=== PATIENT | male | born 1970 | race Caucasian/White ===

== ENCOUNTER → 2018-03-01 | Outpatient (CLI) | payer BC | END | disposition home or self-care (01) | LOC: XY 12:19 | DX: I65.29 Occlusion and stenosis of unspecified carotid artery (principal); R55 Syncope and collapse; R42 Dizziness and giddiness | CPT/HCPCS: 93886 ==

== ENCOUNTER → 2018-04-25 | Outpatient (CLI) | payer BC ==
[~2018-04-25] VITALS: Ht 182.9 cm; Wt 90.7 kg
== END | disposition home or self-care (01) ==
LOC: Rad HDHVI 14:12
PROVIDERS: ATTEND Internal Medicine Cardiovascular Disease
DX: I45.10 Unspecified right bundle-branch block (principal); I49.9 Cardiac arrhythmia, unspecified
CPT/HCPCS: 78452; 93017; 93306; 96374; A9500

== ENCOUNTER 2018-05-29 11:27 | Day surgery (SDC) | payer BC ==
[2018-05-28 11:59] LABS: Basophils # (auto) 0.1 uL; Basophils % (auto) 0.8 % (0.0-2.0); Eosinophils # (auto) 0.4 uL; Hematocrit 47.9 % (41.0-53.0); Hemoglobin 16.2 g/dL (13.5-17.5); Lymphocytes # (auto) 2.5 uL; Mean Corpuscular Hemoglobin 28.6 pg (28.0-32.0); Mean Corpuscular Hgb Conc. 33.9 g/dL (32.0-36.0); Mean Corpuscular Volume 84.4 fL (80.0-100.0); Monocytes # (auto) 0.6 uL; Monocytes % (auto) 7.9 % (0.0-12.0); Neutrophils # (auto) 4.4 uL; Neutrophils % (auto) 55.3 % (37.0-80.0); Nucleated Red Blood Cells % 0.1 %; Platelet Count (auto) 377 10^3/uL (140-450); Red Blood Cells 5.67 10^6/uL (4.5-5.90); Red Cell Distribution Width 13.5 % (11.8-14.3)
[2018-05-28 12:11] LABS: INR 1.02 (0.9-1.15); Partial Thromboplastin Time 28.4 sec (23.78-33.04); Prothrombin Time 10.9 sec (9.27-12.13)
[2018-05-28 12:22] LABS: Albumin 4.3 g/dL (3.4-5.0); Calcium 8.7 mg/dL (8.5-10.1)
[2018-05-28 12:24] LABS: BUN/Creatinine Ratio 9.4; Bilirubin, Total 0.3 mg/dL (0.2-1.0); Total Protein 7.8 g/dL (6.4-8.2)
[~2018-05-29] VITALS: Ht 182.9 cm; Wt 88.5 kg
[~2018-05-29 11:27] MED LIST: BUSP7.5T4 PO; LISI-707 PO; MAGN400T5 PO; POTA20TA53 PO; SERT25TA84 PO
[2018-05-29] MEDS ORDERED: SODIUM CHL 0.9% 0 ML ONE (14:05)
[2018-05-29] MEDS ORDERED: fentaNYL CITRATE 100 MCG/2 ML VL ONE (14:05)
[2018-05-29] MEDS ORDERED: ANGIOMAX 250 MG VIAL IV ONE (14:05)
[2018-05-29] MEDS ORDERED: MIDAZOLAM HCL 1MG/1ML-2 ML VIAL ONE (14:05)
[2018-05-29] MEDS ORDERED: IOHEXOL 350 MG/ML 100ML IJ ONE (14:23)
== END 2018-05-29 17:40 | disposition home or self-care (01) ==
LOC: CATH 11:27
PROVIDERS: ATTEND Internal Medicine Cardiovascular Disease
DX: R07.89 Other chest pain (principal); Z79.899 Other long term (current) drug therapy; Z98.890 Other specified postprocedural states; I10 Essential (primary) hypertension
CPT/HCPCS: 36415; 80053; 85025; 85610; 85730; 93005; 93458; A6257; C1760; C1894; J2250; J3010; J7030; Q9967; 99152; 99153

== ENCOUNTER → 2020-10-27 | Outpatient (CLI) | payer BC ==
[~2020-10-27] MED LIST changes: -BUSP7.5T4 PO; +BUSP7.5T8 PO; +MAGN400T40 PO; -MAGN400T5 PO; +POTA-220 PO; -POTA20TA53 PO
== END | disposition home or self-care (01) ==
LOC: LAB 16:36
PROVIDERS: ATTEND Internal Medicine Pulmonary Disease
DX: Z01.812 Encounter for preprocedural laboratory examination (principal); Z20.822 Contact with and (suspected) exposure to COVID-19
CPT/HCPCS: 36415; 87426

== ENCOUNTER → 2020-10-28 | Outpatient (CLI) | payer BC ==
[~2020-10-28] MED LIST changes: +ALBUTEROL SULF 2.5 MG/0.5ML(0.5%) NEB SOLN ONE
== END | disposition home or self-care (01) ==
LOC: XYW 08:09
DX: R06.02 Shortness of breath (principal)
CPT/HCPCS: 94060